=== PATIENT | female | born 1950 | race Caucasian/White ===

== ENCOUNTER 2023-03-13 12:13 | Emergency (ER) | payer MEDICARE ==
[2023-03-13 12:51] LABS: BASOPHILS PERCENT AUTO 0.2 % (0.1-1.3); EOSINOPHILS ABSOLUTE AUTO 0.06 K/uL (0.00-0.40); EOSINOPHILS PERCENT AUTO 0.7 % (0.0-5.4); HEMATOCRIT 38.5 % (34.3-46.0); HEMOGLOBIN 12.7 g/dL (11.2-15.5); IMMATURE GRAN ABSOLUTE AUTO 0.03 K/uL (0.00-0.23); IMMATURE GRAN PERCENT AUTO 0.4 % (0.0-0.7); LYMPHOCYTES ABSOLUTE AUTO 2.32 K/uL (0.8-3.3); LYMPHOCYTES PERCENT AUTO 27.6 % (11.4-47.7); MEAN CORPUSCULAR HEMOGLOBIN 28.5 pg (31.6-35.5); MEAN CORPUSCULAR VOLUME 86.5 fL (81.4-99.0); MONOCYTES ABSOLUTE AUTO 0.66 K/uL (0.20-0.90); MONOCYTES PERCENT AUTO 7.8 % (3.3-12.6); NEUTROPHILS ABSOLUTE AUTO 5.32 K/uL (1.0-7.6); NEUTROPHILS PERCENT AUTO 63.3 % (40.0-78.1); PLATELET COUNT,PLT 311 K/uL (130-375); RED BLOOD CELL COUNT 4.45 M/uL (3.77-5.24); WHITE BLOOD CELL COUNT,WBC 8.4 K/uL (3.2-11.0)
[2023-03-13] MEDS ORDERED: Aspirin 81 MG Tab.Chew PO ONE (12:51)
[2023-03-13] MEDS ORDERED: LORazepam 0.5 MG Tab PO ONE (12:51)
[2023-03-13 12:52] LABS: BASOPHILS ABSOLUTE AUTO 0.02 K/uL (0.00-0.10)
[2023-03-13 13:03] LABS: BLOOD UREA NITROGEN,BUN 20 mg/dL (7-18); CALCIUM 8.8 mg/dL (8.5-10.1); CARBON DIOXIDE,CO2 27 mmol/L (21-32); CHLORIDE,CL 104 mmol/L (100-108); CREATININE 0.9 mg/dL (0.6-1.0); ESTIMATED GFR 67 mL/min (>60); GLUCOSE RANDOM 84 mg/dL (74-106); POTASSIUM,K 3.6 mmol/L (3.6-5.2); SODIUM,NA 140 mmol/L (140-148); TROPONIN I HIGH SENSITIVITY 14.3 pg/mL (<=60.3)
== END 2023-03-13 15:00 | disposition home or self-care (01) ==
LOC: JP.ED 12:13
DX: R07.89 Other chest pain (principal); I10 Essential (primary) hypertension; K21.9 Gastro-esophageal reflux disease without esophagitis; E78.00 Pure hypercholesterolemia, unspecified; E66.9 Obesity, unspecified; Z79.899 Other long term (current) drug therapy; Z86.16 Personal history of COVID-19; Z88.8 Allergy status to other drugs, medicaments and biological substances
CPT/HCPCS: 36415; 71045; 80048; 84484; 85025; 93005; 93010; 99283; 99285; A9270

== ENCOUNTER 2023-10-27 07:57 | Day surgery (SDC) | payer MEDICARE ==
[2023-10-27] MEDS: Lactated Ringers 1,000 ML IV SCH (08:24)
[2023-10-27] MEDS ORDERED: fentaNYL 100 MCG/2 ML SDV ONE (08:38)
[2023-10-27] MEDS ORDERED: Propofol 200 MG/20 ML SDV ONE ×2 (08:39→08:55)
[2023-10-27] MEDS ORDERED: Lidocaine 1% 2 ML ONE (08:40)
== END 2023-10-27 10:33 | disposition home or self-care (01) ==
LOC: JP.SDS 07:57
PROVIDERS: ATTEND Family Medicine
DX: Z12.11 Encounter for screening for malignant neoplasm of colon (principal); K64.8 Other hemorrhoids; E78.5 Hyperlipidemia, unspecified; K21.9 Gastro-esophageal reflux disease without esophagitis; E66.9 Obesity, unspecified; Z88.5 Allergy status to narcotic agent; Z80.0 Family history of malignant neoplasm of digestive organs
CPT/HCPCS: 00812; G0105; J2704; J3010; J7120

== ENCOUNTER → 2023-11-24 | Day surgery (SDC) | payer MEDICARE ==
[~2023-11-24] MED LIST: Dexamethasone 4 MG/ML SDV ONE; Lactated Ringers 1,000 ML IV SCH; Midazolam 1 MG/ML 2 ML SDV ONE; Nozin Nasal Sanitizer NASBOTH ONE; Ondansetron 4 MG/2 ML SDV ONE; Propofol 200 MG/20 ML SDV ONE; ceFAZolin 2 GM in Premix Bag 1 BAG IV ONE; fentaNYL 100 MCG/2 ML SDV ONE
[2023-11-24 06:16] LABS: HEMATOCRIT 35.8 % (34.3-46.0); HEMOGLOBIN 11.8 g/dL (11.2-15.5); MEAN CORPUSCULAR HEMOGLOBIN 29.3 pg (31.6-35.5); MEAN CORPUSCULAR VOLUME 88.8 fL (81.4-99.0); RED BLOOD CELL COUNT 4.03 M/uL (3.77-5.24); WHITE BLOOD CELL COUNT,WBC 7.1 K/uL (3.2-11.0)
[2023-11-24 06:37] LABS: A/G RATIO 1.5 (1.2-2.2); ALANINE AMINOTRANSFERASE,ALT 31 U/L (12-78); ALBUMIN 4.1 g/dL (3.4-5.0); ALKALINE PHOSPHATASE 93 U/L (46-116); ANION GAP 9.2 mmol/L (5.0-14.0); ASPARTATE AMNIOTRANSFERASE,AST 23 U/L (15-37); BILIRUBIN TOTAL 0.4 mg/dL (0.2-1.0); BLOOD UREA NITROGEN,BUN 38 mg/dL (7-18); CALCIUM 9.5 mg/dL (8.5-10.1); CARBON DIOXIDE,CO2 28 mmol/L (21-32); CHLORIDE,CL 107 mmol/L (100-108); CREATININE 1.2 mg/dL (0.6-1.0); EST CRCL DRUG DOSING (CG) 32.04 mL/min; ESTIMATED GFR 47 mL/min (>60); GLUCOSE RANDOM 89 mg/dL (74-106); POTASSIUM,K 4.3 mmol/L (3.6-5.2); PROTEIN TOTAL,TP 6.9 g/dL (6.4-8.2); SODIUM,NA 144 mmol/L (140-148)
[2023-11-24] MEDS: Nozin Nasal Sanitizer NASBOTH ONE (06:41)
[2023-11-24] MEDS: Lactated Ringers 1,000 ML IV SCH (06:57)
[2023-11-24] MEDS: ceFAZolin 2 GM in Premix Bag 1 BAG IV ONE (07:50)
[2023-11-24] MEDS: Bupivacaine 0.5% 50 ML MDV ONE (08:38)
[2023-11-24] MEDS: traMADol 50 MG Tab PO ONE (10:16)
== END ==
LOC: JP.SDS 05:49
PROVIDERS: ATTEND Specialist
DX: M17.11 Unilateral primary osteoarthritis, right knee (principal); M65.162 Other infective (teno)synovitis, left knee; G89.29 Other chronic pain; M25.562 Pain in left knee; E66.9 Obesity, unspecified
CPT/HCPCS: 01400; 20610; 29875; 36415; 80053; 85027; A9270; J0665; J0690; J1100; J2250; J2405; J2704; J3010; J7120

== ENCOUNTER 2024-04-21 08:18 | Inpatient (IN) | payer MEDICARE ==
[~2024-04-21 08:18] MED LIST changes: -Dexamethasone 4 MG/ML SDV ONE; -Lactated Ringers 1,000 ML IV SCH; -Nozin Nasal Sanitizer NASBOTH ONE; -Ondansetron 4 MG/2 ML SDV ONE; -ceFAZolin 2 GM in Premix Bag 1 BAG IV ONE
[2024-04-21 08:45] LABS: HEMATOCRIT 37.2 % (34.3-46.0); HEMOGLOBIN 12.3 g/dL (11.2-15.5); MEAN CORPUSCULAR HEMOGLOBIN 29.4 pg (31.6-35.5); MEAN CORPUSCULAR HGB CONC 33.1 g/dL (31.6-35.5); MEAN CORPUSCULAR VOLUME 88.8 fL (81.4-99.0); RED BLOOD CELL COUNT 4.19 M/uL (3.77-5.24)
[2024-04-21] MEDS: Nozin Nasal Sanitizer NASBOTH SCH ×2 (08:51→20:27)
[2024-04-21 09:00] LABS: CALCIUM 9.4 mg/dL (8.5-10.1); CREATININE 1.1 mg/dL (0.6-1.0); EST CRCL DRUG DOSING (CG) 34.41 mL/min; POTASSIUM,K 3.9 mmol/L (3.6-5.2)
[2024-04-21 09:01] LABS: ANION GAP 14.9 mmol/L (5.0-14.0)
[2024-04-21] MEDS: Lactated Ringers 1,000 ML IV SCH (09:54)
[2024-04-21] MEDS: ceFAZolin 2 GM in Premix Bag 1 BAG IV ONE (11:00)
[2024-04-21] MEDS ORDERED: Fluconazole 150 MG Tab PO PRN (11:14)
[2024-04-21] MEDS ORDERED: diphenhydrAMINE 25 MG Cap PO PRN (11:14)
[2024-04-21] MEDS: Tranexamic Acid 850 MG in Sodium Chloride 0.9% 50 ML IV ONE (11:15)
[2024-04-21] MEDS ORDERED: Non-Formulary Medication 1 Each (Phentermine Hcl [Phentermine Hcl] 37.5 MG Capsule) PO SCH (11:15)
[2024-04-21] MEDS ORDERED: Ondansetron 4 MG/2 ML SDV IVPUSH PRN (11:18)
[2024-04-21] MEDS ORDERED: Midazolam 1 MG/ML 2 ML SDV ONE (11:19)
[2024-04-21] MEDS ORDERED: fentaNYL 100 MCG/2 ML SDV ONE (11:22)
[2024-04-21] MEDS ORDERED: Lactated Ringers 1,000 ML ONE (11:23)
[2024-04-21] MEDS: Bupivacaine 0.5% 50 ML MDV ONE (11:50)
[2024-04-21] MEDS ORDERED: Propofol 200 MG/20 ML SDV ONE (12:18)
[2024-04-21] MEDS: diphenhydrAMINE 50 MG/ML SDV IVPUSH ONE (13:28)
[2024-04-21] MEDS: Acetaminophen 325 MG Tab PO SCH (15:22)
[2024-04-21] MEDS: Acetaminophen/HYDROcodone 325-10 MG Tab PO PRN (15:37)
[2024-04-21] MEDS: Pregabalin 50 MG Cap PO PRN (15:44)
[2024-04-21] MEDS: Sodium Chloride 0.9% 1,000 ML IV SCH (15:57)
[2024-04-21] MEDS: Ketorolac 15 MG/ML SDV IVPUSH PRN (15:57)
[2024-04-21] MEDS: Morphine 2 MG/ML SYRINGE IVPUSH PRN (17:09)
[2024-04-21] MEDS: ceFAZolin 2 GM in Premix Bag 1 BAG IV SCH (17:14)
[2024-04-21] MEDS: Cyclobenzaprine 10 MG Tab PO PRN (17:15)
[2024-04-21] MEDS: Doxepin 10 MG Cap PO SCH (20:27)
[2024-04-21] MEDS: Pregabalin 100 MG Cap PO SCH (20:27)
[2024-04-22] MEDS: Pantoprazole 40 MG Tab.CR PO SCH (07:20)
[2024-04-22] MEDS: atorvaSTATin 20 MG Tab PO SCH (08:33)
[2024-04-22] MEDS: diphenhydrAMINE 25 MG Cap PO PRN (08:33)
[2024-04-22] MEDS: Ascorbic Acid 500 MG Tab PO SCH (08:33)
[2024-04-22] MEDS: Multivitamins with Iron/Calcium/Folic Acid/Minerals Tab PO SCH (08:33)
[2024-04-22] MEDS: Aspirin 325 MG Tab.EC PO SCH (08:33)
[2024-04-22] MEDS: Cholecalciferol (Vitamin D3) 25 MCG Tab PO SCH (08:33)
[2024-04-22] MEDS: Zinc Sulfate 220 MG Cap PO SCH (08:34)
[2024-04-22] MEDS: amLODIPine 5 MG Tab PO SCH (08:34)
[2024-04-22] MEDS: Docusate Sodium 100 MG Cap PO PRN (08:46)
[2024-04-22] MEDS ORDERED: TURMERIC 1 GM PO SCH (09:00)
[2024-04-22] MEDS ORDERED: BIOTIN 2500 MCG PO SCH (09:00)
[2024-04-22] MEDS: Methocarbamol 500 MG Tab PO SCH (11:59)
[2024-04-24] MEDS: Magnesium Hydroxide 400 MG/5 ML Susp 30 ML Cup PO PRN (19:23)
[2024-04-24] MEDS: Morphine 15 MG Tab PO PRN (21:30)
[2024-04-26] MEDS ORDERED: Pregabalin 50 MG Cap PO SCH (21:00)
[2024-04-26] MEDS ORDERED: Pregabalin 100 MG Cap PO SCH (21:00)
== END 2024-04-26 12:02 | DRG 470 ==
LOC: JP.SDS 08:18 → JP.MS 11:18 → JP.SDS 04-22 07:43 → JP.MS 04-22 07:43
PROVIDERS: ADMIT Specialist; ATTEND Specialist
PROC: 0SRC0J9 Replacement of Right Knee Joint with Synthetic Substitute, Cemented, Open Approach (ICD-10-PCS; principal; 2024-04-21 10:00)
DX: M17.11 Unilateral primary osteoarthritis, right knee (principal); Z96.652 Presence of left artificial knee joint; F10.90 Alcohol use, unspecified, uncomplicated; M46.1 Sacroiliitis, not elsewhere classified; G89.29 Other chronic pain; M53.3 Sacrococcygeal disorders, not elsewhere classified; M70.61 Trochanteric bursitis, right hip; M70.62 Trochanteric bursitis, left hip; M23.91 Unspecified internal derangement of right knee; M54.16 Radiculopathy, lumbar region; K21.9 Gastro-esophageal reflux disease without esophagitis; Z98.890 Other specified postprocedural states; Z79.899 Other long term (current) drug therapy; Z79.02 Long term (current) use of antithrombotics/antiplatelets; Z79.1 Long term (current) use of non-steroidal anti-inflammatories (NSAID); Z88.5 Allergy status to narcotic agent
CPT/HCPCS: 36415; 73560-26-RT; 73560-RT; 80048; 85027; 97110-GP; 97140-GP; 97161-GP; 97165-GO; 97530-GP; 97535-GO; A9270-GY; C1713; C1776; J0665; J0690; J1200; J1885; J2250; J2270; J2704; J3010; J7030; J7120